=== PATIENT | female | born 1985 | race Caucasian/White ===

== ENCOUNTER 2016-10-21 22:31 | Emergency (ER) | payer MEDICAID ==
[~2016-10-21] VITALS: Ht 165.1 cm; Wt 74.6 kg
[~2016-10-21 22:31] MED LIST: PREN28CA; SUBUTEX SL
[2016-10-21 22:51] VITALS: BP 173/102; PULSE 66; RESP 20; TEMP 99.5; O2SAT 99
[2016-10-21] MEDS ORDERED: BUPR8SUB SL (23:18)
[2016-10-22 00:27] VITALS: BP 138/87; PULSE 71; RESP 18; TEMP 98; O2SAT 98
[2016-10-22] MEDS ORDERED: PERC7.5T13 PO (00:56)
--- NOTE | 2016-10-22 00:57 | PD ---
HPI Chief Complaint: Oral / Dental Pain or Problem Time Seen by Provider: 00:32 Travel History International Travel<30 days: No Contact w/Intl Traveler<30days: No Traveled to known affect area: No History of Present Illness HPI The patient is a 31-year-old female that has several dental infections. She is been taking ibuprofen 600 mg every 4-6 hours daily for 4 weeks. She also takes Tylenol regularly. She states that her dentist told her that this is too much and her dentist wanted to call her in some pain medication. She waited at the pharmacy but no call came in she states. The patient complains of pain in teeth #13 and #17. She was referred to an oral surgeon in [facility] but does not have an appointment until November 10. She denies any fever, diabetes but does state she has fibromyalgia and takes Subutex for this. She states she was completely worked up for fibromyalgia in [place] and nothing was found so they diagnosed it as fibromyalgia. Her chronic fibromyalgia pain is in the lower extremities. She denies any diabetes. PFSH Past Medical History Diminished Hearing: No Fibromyalgia: Yes Immunizations Current: No Influenza Vaccination: No ?: Unknown LMP: 12/2015 : 2 Para: 1 Social History Alcohol Use: No Tobacco Use: No Substance Use: No Allergies-Medications (Allergen,Severity, Reaction): Coded Allergies: No Known Allergies (Unverified , 10/21/16) Reported Meds & Prescriptions Reported Meds & Active Scripts Active Reported Buprenorphine (Buprenorphine HCl) 8 Mg Subl 8 Mg SL BID C-Alexis Dha 28-1-200 mg ( Vit W/ Ferrous Fumara) 1 Cap Cap Review of Systems Except as stated in HPI: all other systems reviewed are Neg Physical Exam Narrative GENERAL: Well-nourished, well-developed patient. SKIN: Warm and dry. HEAD: Normocephalic. EYES: No scleral icterus. No injection or drainage. NECK: Supple, trachea midline. No JVD or lymphadenopathy. CARDIOVASCULAR: Regular rate and rhythm without murmurs, gallops, or rubs. RESPIRATORY: Breath sounds equal bilaterally. No accessory muscle use. GASTROINTESTINAL: Abdomen soft, non-tender, nondistended. MUSCULOSKELETAL: No cyanosis, or edema. BACK: Nontender without obvious deformity. No CVA tenderness. Tooth #13 is broken down and is exquisitely tender. No drainable abscesses are present in the mouth. Tooth #17 is also tender. Data Data Last Documented VS Vital Signs Date Time Temp Pulse Resp B/P Pulse Ox O2 Delivery O2 Flow Rate FiO2 10/22/16 00:24 18 10/21/16 22:51 99.5 66 173/102 99 MDM Medical Decision Making Medical Screen Exam Complete: Yes Emergency Medical Condition: Yes Medical Record Reviewed: Yes Differential Diagnosis Dental infection, drainable dental abscess, malingering to obtain narcotic pain medications, gingivitis Narrative Course The patient appears to have dental infections. She has been taking too much ibuprofen. The Subutex may block narcotic effect of Percocet so she should probably discontinue the Subutex and see if the Percocet will relieve her pain. She should follow-up with her oral surgeon as scheduled. Diagnosis Primary Impression: Dental infection Additional Instructions: Do not drink alcohol or drive on the Percocet. The Percocet may not work and less you to discontinue the Subutex. Whenever, you can try the Percocet and Subutex to see if this works. Med/Other Pt SpecificInfo: Prescription(s) given Scripts Oxycodone-Acetaminophen (Percocet)7.5-325 mg Tab1 Tab PO Q4H PRN (PAIN) #30 TAB Ref 0 Prov:Anish Cortes MD 10/22/16 Disposition: 01 DISCHARGE HOME Condition: Stable Anish Cortes MD Oct 22, 2016 00:57
[2016-10-22] MEDS ORDERED: Subutex SL (01:06)
[2016-10-24] MEDS ORDERED: BUPR8SUB SL (09:50)
== END 2016-10-22 01:19 | disposition home or self-care (01) ==
LOC: PHED 22:31
DX: K04.7 Periapical abscess without sinus (principal); M79.7 Fibromyalgia
CPT/HCPCS: 99282